=== PATIENT | female | born 1940 | race Caucasian/White ===

== ENCOUNTER → 2017-08-04 | Outpatient (CLI) | payer OTHER, MEDICARE ==
--- NOTE | 2017-08-04 08:35 | DIAGNOSTIC IMAGING REPORT ---
LYMPHOSCINTIGRAPHY CLINICAL HISTORY: Right breast cancer. PROCEDURE: Using standard sterile technique, 4 intradermal and one deep injection of 0.575 mCi of Lymphoseek was placed in the right breast medial to the nipple at the site specified by the surgeon. The patient tolerated the procedure well. There were no immediate complications. The patient was subsequently transported to [facility] for surgery. No imaging was obtained at the referring physician's request. IMPRESSION: Injection of 0.575 mCi of Lymphoseek in the right breast. Electronically signed by: Jimy Barahona M.D. 08/04/2017 8:34 AM Dictated Date/Time: 08/04/2017 8:33 AM
== END | disposition home or self-care (01) ==
LOC: C.NUCL 07:33
PROVIDERS: ATTEND Surgery
DX: C50.311 Malignant neoplasm of lower-inner quadrant of right female breast (principal)

== ENCOUNTER → 2017-09-14 | Outpatient (CLI) | payer OTHER, MEDICARE ==
[~2017-09-14] MED LIST: ASPI81TA28 PO; CHOL2000 PO; LISI-788 PO; ZCR40
--- NOTE | 2017-09-14 19:01 | ECHOCARDIOGRAM REPORT ---
*NOTICE TO RECEIVING LIBERTARIAN AGENCY This information is strictly Confidential and protected under [place] law. [place] law prohibits you from making any further disclosure of this information unless further disclosure is expressly permitted by the written consent of the person to whom it pertains or is authorized by law. A general authorization for the release of medical or other information is not sufficient for this purpose. Hospital accepts no responsibility if the information is made available to any other person, INCLUDING THE PATIENT. Interpretation Summary * Name: ROSE SAINZ Study Date: 09/14/2017 01:36 PM BP: 114/58 mmHg * Patient Location: [facility] HR: 82 * : 1940 (M/d/yyyy) Gender: Female Height: 65 in * Age: 77 yrs Ethnicity: CA Weight: 129 lb * Ordering Physician: Thee Quezada * Referring Physician: Thee Quezada * Performed By: Radha Rangel RDCS * * Reason For Study: BREAST CA * BSA: 1.6 m2 * Normal biventricular systolic function. * Class 1 left ventricular diastolic dysfunction. * Normal chamber dimensions. * Trace pulmonic regurgitation. * Mild tricuspid regurgitation. * Mildly elevated estimated right ventricular systolic pressure. * Normal estimated central venous pressure. * -- Conclusions -- * Aortic valve sclerosis mild, without significant aortic valvular stenosis. Procedure Details * A complete two-dimensional transthoracic echocardiogram was performed (2D, M-mode, Doppler and color flow Doppler). Left Ventricle * The left ventricle is normal in size. * Focal thickening of the basal septum with no evidence of left ventricular outflow obstruction. * Ejection Fraction = 65-70%. * Left ventricular systolic function is normal. * A full diastolic examination was done with clinical findings of Class I diastolic dysfunction. * The left ventricular wall motion is normal. Right Ventricle * The right ventricle is normal in size and function. * The right ventricular systolic function is normal as assessed by tricuspid annular plane systolic excursion (TAPSE) (normal >1.5 cm). Atria * The left atrial size is normal. * Right atrial size is normal. * No ASD detected; PFO is not assessed. Mitral Valve * The mitral valve is normal. * There is no mitral valve stenosis. * There is no mitral regurgitation noted. Tricuspid Valve * The tricuspid valve is normal. * There is no tricuspid stenosis. * There is mild tricuspid regurgitation. * Right ventricular systolic pressure is elevated at 30-40mmHg. Aortic Valve * The aortic valve is trileaflet. * The aortic valve opens well. * Aortic valve sclerosis mild, without significant aortic valvular stenosis. * Aortic stenosis is absent. * No aortic regurgitation is present. Pulmonic Valve * The pulmonic valve is not well visualized. * The pulmonary valve is inadequately visualized, but the Doppler data is adequate for interpretation. * There is no pulmonic valvular stenosis. * Trace pulmonic valvular regurgitation. Great Vessels * The aortic root is normal size. * The aortic root and proximal ascending aorta are normal sized. Pericardium/Pleural * There is no pericardial effusion. Great Vessels * Normal inferior vena cava diameter and respiratory variation suggests normal central venous pressure. MMode 2D Measurements and Calculations IVSd 0.96 cm IVSs 1.8 cm LVIDd 4.0 cm LVIDs 2.4 cm LVPWd 0.98 cm LVPWs 1.4 cm IVS/LVPW 0.99 FS 40.1 % EDV(Teich) 71.3 ml ESV(Teich) 20.4 ml EF(Teich) 71.3 % EDV(cubed) 65.5 ml ESV(cubed) 14.1 ml EF(cubed) 78.5 % % IVS thick 91.4 % % LVPW thick 47.3 % LV mass(C)d 123.3 grams LV mass(C)dI 75.1 grams/m\S\2 LV mass(C)s 142.8 grams LV mass(C)sI 87.0 grams/m\S\2 SV(Teich) 50.8 ml SI(Teich) 31.0 ml/m\S\2 SV(cubed) 51.4 ml SI(cubed) 31.3 ml/m\S\2 Ao root diam 3.4 cm Ao root area 8.9 cm\S\2 ACS 1.5 cm LA dimension 3.4 cm asc Aorta Diam 3.2 cm LA/Ao 10 LVOT diam 1.7 cm LVOT area 2.2 cm\S\2 LVAd ap4 25.8 cm\S\2 LVLd ap4 7.7 cm EDV(MOD-sp4) 71.3 ml EDV(sp4-el) 73.7 ml LVAs ap4 12.8 cm\S\2 LVLs ap4 6.3 cm ESV(MOD-sp4) 21.8 ml ESV(sp4-el) 22.0 ml EF(MOD-sp4) 69.4 % EF(sp4-el) 70.1 % LVAd ap2 22.4 cm\S\2 LVLd ap2 6.8 cm EDV(MOD-sp2) 61.6 ml EDV(sp2-el) 63.1 ml LVAs ap2 11.5 cm\S\2 LVLs ap2 5.5 cm ESV(MOD-sp2) 19.6 ml ESV(sp2-el) 20.3 ml EF(MOD-sp2) 68.1 % EF(sp2-el) 67.8 % LVLd %diff -13.70 % EDV(MOD-bp) 70.5 ml LVLs %diff -15.17 % ESV(MOD-bp) 22.3 ml EF(MOD-bp) 68.4 % SV(MOD-sp4) 49.5 ml SI(MOD-sp4) 30.1 ml/m\S\2 SV(MOD-sp2) 41.9 ml SI(MOD-sp2) 25.5 ml/m\S\2 SV(MOD-bp) 48.2 ml SI(MOD-bp) 29.4 ml/m\S\2 SV(sp4-el) 51.7 ml SI(sp4-el) 31.5 ml/m\S\2 SV(sp2-el) 42.8 ml SI(sp2-el) 26.1 ml/m\S\2 Doppler Measurements and Calculations MV E max luis 50.1 cm/sec MV A max luis 72.3 cm/sec MV E/A 0.69 MV dec time 0.32 sec Ao V2 max 140.6 cm/sec Ao max PG 7.9 mmHg Ao max PG (full) 0.64 mmHg BLANCA(V,A) 2.2 cm\S\2 BLANCA(V,D) 2.2 cm\S\2 LV V1 max PG 7.3 mmHg LV V1 max 134.8 cm/sec PA V2 max 93.8 cm/sec PA max PG 3.5 mmHg TR max luis 277.0 cm/sec
== END | disposition home or self-care (01) ==
LOC: C.CPL 13:30
PROVIDERS: ATTEND Internal Medicine Hematology & Oncology
DX: C50.311 Malignant neoplasm of lower-inner quadrant of right female breast (principal)

== ENCOUNTER → 2018-01-20 | Outpatient (CLI) | payer OTHER, MEDICARE ==
[~2018-01-20] MED LIST changes: +ERGO500037 PO; -ZCR40; +ZCR40 PO
--- NOTE | 2018-01-20 16:05 | ECHOCARDIOGRAM REPORT ---
*NOTICE TO RECEIVING DEMOCRAT AGENCY This information is strictly Confidential and protected under [place] law. [place] law prohibits you from making any further disclosure of this information unless further disclosure is expressly permitted by the written consent of the person to whom it pertains or is authorized by law. A general authorization for the release of medical or other information is not sufficient for this purpose. Hospital accepts no responsibility if the information is made available to any other person, INCLUDING THE PATIENT. Interpretation Summary * Conclusions -- * Left ventricular systolic function is normal. * There is mild mitral regurgitation. * Right ventricular systolic pressure is normal. Procedure Details * A complete two-dimensional transthoracic echocardiogram was performed (2D, M-mode, Doppler and color flow Doppler). Left Ventricle * The left ventricle is normal in size. * There is normal left ventricular wall thickness. * Ejection Fraction = 55-60%. * Left ventricular systolic function is normal. * The left ventricular wall motion is normal. Right Ventricle * The right ventricle is normal in size and function. * The right ventricular systolic function is qualitatively normal. Atria * The left atrial size is normal. * Right atrial size is normal. Mitral Valve * The mitral valve leaflets appear normal. There is no evidence of stenosis, fluttering, or prolapse. * There is mild mitral regurgitation. Tricuspid Valve * The tricuspid valve is not well visualized, but is grossly normal. * There is trace tricuspid regurgitation. * Right ventricular systolic pressure is normal. Aortic Valve * The aortic valve is normal in structure and function. * The aortic valve is trileaflet. * No hemodynamically significant valvular aortic stenosis. * There is no significant aortic regurgitation. Great Vessels * The aortic root is normal size. Pericardium/Pleural * There is no pericardial effusion. Great Vessels * Normal inferior vena cava diameter and respiratory variation suggests normal central venous pressure. MMode 2D Measurements and Calculations IVSd 0.92 cm IVSs 1.1 cm LVIDd 3.9 cm LVIDs 2.6 cm LVPWd 0.87 cm LVPWs 1.1 cm IVS/LVPW 1.1 FS 33.7 % EDV(Teich) 67.3 ml ESV(Teich) 24.8 ml EF(Teich) 63.1 % EDV(cubed) 60.9 ml ESV(cubed) 17.8 ml EF(cubed) 70.9 % % IVS thick 18.5 % % LVPW thick 24.0 % LV mass(C)d 105.3 grams LV mass(C)dI 66.0 grams/m\S\2 LV mass(C)s 75.9 grams LV mass(C)sI 47.6 grams/m\S\2 SV(Teich) 42.5 ml SI(Teich) 26.6 ml/m\S\2 SV(cubed) 43.2 ml SI(cubed) 27.0 ml/m\S\2 Ao root diam 3.5 cm Ao root area 9.4 cm\S\2 ACS 1.4 cm LA dimension 2.8 cm asc Aorta Diam 3.1 cm LA/Ao 0.80 EDV(MOD-sp4) 75.0 ml ESV(MOD-sp4) 36.0 ml EF(MOD-sp4) 52.0 % EDV(MOD-sp2) 76.0 ml ESV(MOD-sp2) 30.0 ml EF(MOD-sp2) 60.5 % SV(MOD-sp4) 39.0 ml SI(MOD-sp4) 24.4 ml/m\S\2 SV(MOD-sp2) 46.0 ml SI(MOD-sp2) 28.8 ml/m\S\2 Doppler Measurements and Calculations MV E max luis 76.2 cm/sec MV A max luis 71.0 cm/sec MV E/A 1.1 MV P1/2t max luis 86.8 cm/sec MV P1/2t 70.0 msec MVA(P1/2t) 3.1 cm\S\2 MV dec slope 363.4 cm/sec\S\2 MV dec time 0.23 sec Ao V2 max 129.1 cm/sec Ao max PG 6.7 mmHg Ao max PG (full) 1.0 mmHg LV V1 max PG 5.6 mmHg LV V1 max 118.7 cm/sec PA V2 max 83.3 cm/sec PA max PG 2.8 mmHg TR max luis 249.5 cm/sec
== END | disposition home or self-care (01) ==
LOC: C.CPL 12:28
PROVIDERS: ATTEND Internal Medicine Hematology & Oncology
DX: C50.311 Malignant neoplasm of lower-inner quadrant of right female breast (principal)

== ENCOUNTER → 2018-02-03 | Outpatient (CLI) | payer OTHER, MEDICARE ==
[~2018-02-03] MED LIST changes: -CHOL2000 PO
--- NOTE | 2018-02-06 07:46 | MAMMOGRAPHY REPORT ---
UNILATERAL RIGHT DIGITAL DIAGNOSTIC MAMMOGRAM TOMOSYNTHESIS WITH CAD: 02/03/2018 CLINICAL HISTORY: History of right breast cancer status post lumpectomy July 2017 as well as chemo therapy. She will be undergoing radiation therapy in the near future. She denies any current compla ints. TECHNIQUE: Breast tomosynthesis in addition to standard 2D mammography was performed. Current study was also evaluated with a Computer Aided Detection (CAD) system. Right CC and MLO 2D and tomosynthes is images and spot magnification right CC and ML views were obtained. COMPARISON: Comparison is made to exams dated: 06/29/2017 mammogram and 08/04/2017 mammogram. Note t hat the patient has had older prior screening mammograms at [facility], however, there is an iss ue with the PACS system in [place] and the older prior mammograms cannot be retrieved and therefore ar e not available for comparison. BREAST COMPOSITION: The tissue of the right breast is heterogeneously dense, which may obscure small masses. FINDINGS: There are new postsurgical changes in the right lower inner quadrant from prior lumpectomy, including new density, architectural distortion, and surgical clips at the lumpectomy bed. Coarse b enign-appearing calcifications are seen throughout the right breast, with a few faint calcifications seen slightly medial to the lumpectomy bed which have the appearance of vascular calcifications when reviewing the tomosynthesis images. The remainder of the right breast demonstrates no suspicious mass es, calcifications, or areas of architectural distortion. IMPRESSION: ACR-BI-RADS CATEGORY 3: PROBABLY BENIGN New post surgical changes in the right breast from prior lumpectomy, without mammographic evidence of malignancy in the right breast. Recommend bilateral diagnostic tomosynthesis mammograms in 6 months , to reevaluate the right breast posttreatment changes and for routine mammography of the left breast . The patient has been verbally notified of the results. Approximately 10% of breast cancers are not detected with mammography. A negative mammographic report should not delay biopsy if a clinically suggestive mass is present. Maude Mustafa M.D. /:02/03/2018 14:50:13 Trauma Program Manager: Tapan ORTIZ)([place]), [facility] letter sent: Personal History 3 BI-RADS Code: ACR-BI-RADS Category 3: Probably Benign
== END | disposition home or self-care (01) ==
LOC: C.MAMM 09:51
PROVIDERS: ATTEND Nurse Practitioner Women's Health
DX: C50.911 Malignant neoplasm of unspecified site of right female breast (principal)

== ENCOUNTER → 2018-03-06 | Outpatient (CLI) | payer OTHER, MEDICARE ==
[~2018-03-06] MED LIST changes: +CETI10TA84 PO
--- NOTE | 2018-03-06 15:50 | ECHOCARDIOGRAM REPORT ---
*NOTICE TO RECEIVING DEMOCRAT AGENCY This information is strictly Confidential and protected under [place] law. [place] law prohibits you from making any further disclosure of this information unless further disclosure is expressly permitted by the written consent of the person to whom it pertains or is authorized by law. A general authorization for the release of medical or other information is not sufficient for this purpose. Hospital accepts no responsibility if the information is made available to any other person, INCLUDING THE PATIENT. Interpretation Summary * Name: ROSE SAINZ Study Date: 03/06/2018 01:39 PM BP: 128/70 mmHg * Patient Location: [facility] HR: 76 * : 1940 (M/d/yyyy) Gender: Female Height: 65 in * Age: 78 yrs Ethnicity: CA Weight: 128 lb * Ordering Physician: Thee Quezada * Referring Physician: Thee Quezada * Performed By: Mile Smith RDCS * * Reason For Study: BREAST CA * BSA: 1.6 m2 * -- Conclusions -- * 1. Normal LV size. Mild asymmetric basal septal hypertrophy. * 2. Normal LV systolic function. LVEF 55-60%. * 3. Normal RV size and function. * 4. Mild mitral regurgitation * 5. Normal estimated PA and RA pressures. * 6. Compared with prior study on 01/20/2018: No significant change Procedure Details * Left Ventricle The left ventricle is grossly normal size. There is mild asymmetric left ventricular hypertrophy. Ejection Fraction = 55-60%. Septal motion is consistent with conduction abnormality. * Right Ventricle The right ventricle is grossly normal size. The right ventricular systolic function is normal as assessed by tricuspid annular plane systolic excursion (TAPSE) (normal >1.5 cm). * Atria The left atrial size is normal. Right atrial size is normal. No ASD detected; PFO is not assessed. * Mitral Valve There is no mitral valve stenosis. There is mild mitral regurgitation. * Tricuspid Valve There is mild tricuspid regurgitation. * Aortic Valve The aortic valve opens well. The aortic valve is trileaflet. No hemodynamically significant valvular aortic stenosis. There is no significant aortic regurgitation. * Pulmonic Valve The pulmonary valve is inadequately visualized, but the Doppler data is adequate for interpretation. There is no pulmonic valvular stenosis. There is no significant pulmonary regurgitation. * Great Vessels The aortic root and proximal ascending aorta are normal sized. * Pericardium/Pleural There is no pericardial effusion. * Great Vessels Normal inferior vena cava size and collapsability with sniff indicates a normal right atrial pressure of 3 mmHg * * MMode 2D Measurements and Calculations * IVSd 1.4 cm * IVSs 1.6 cm * * LVIDd 3.2 cm * LVIDs 2.3 cm * LVPWd 1.1 cm * LVPWs 1.5 cm * * IVS/LVPW 1.3 * FS 28.5 % * EDV(Teich) 40.4 ml * ESV(Teich) 17.6 ml * EF(Teich) 56.4 % * * EDV(cubed) 32.2 ml * ESV(cubed) 11.7 ml * EF(cubed) 63.5 % * % IVS thick 14.8 % * % LVPW thick 41.3 % * * LV mass(C)d 123.3 grams * LV mass(C)dI 75.3 grams/m\S\2 * LV mass(C)s 120.3 grams * LV mass(C)sI 73.5 grams/m\S\2 * * SV(Teich) 22.8 ml * SI(Teich) 13.9 ml/m\S\2 * SV(cubed) 20.4 ml * SI(cubed) 12.5 ml/m\S\2 * * Ao root diam 3.5 cm * Ao root area 9.6 cm\S\2 * LA dimension 3.0 cm * * LA/Ao 0.87 * * LVAd ap4 22.5 cm\S\2 * LVLd ap4 7.2 cm * EDV(MOD-sp4) 61.1 ml * EDV(sp4-el) 59.3 ml * LVAs ap4 13.9 cm\S\2 * LVLs ap4 6.7 cm * ESV(MOD-sp4) 26.2 ml * ESV(sp4-el) 24.3 ml * EF(MOD-sp4) 57.2 % * EF(sp4-el) 59.0 % * * LVAd ap2 26.3 cm\S\2 * LVLd ap2 7.9 cm * EDV(MOD-sp2) 77.4 ml * EDV(sp2-el) 74.5 ml * LVAs ap2 15.3 cm\S\2 * LVLs ap2 6.8 cm * ESV(MOD-sp2) 31.3 ml * ESV(sp2-el) 29.3 ml * EF(MOD-sp2) 59.6 % * EF(sp2-el) 60.7 % * * LVLd %diff 8.4 % * EDV(MOD-bp) 70.0 ml * LVLs %diff 1.7 % * ESV(MOD-bp) 28.4 ml * EF(MOD-bp) 59.5 % * * SV(MOD-sp4) 35.0 ml * SI(MOD-sp4) 21.4 ml/m\S\2 * * SV(MOD-sp2) 46.1 ml * SI(MOD-sp2) 28.2 ml/m\S\2 * * SV(MOD-bp) 41.7 ml * SI(MOD-bp) 25.5 ml/m\S\2 * * SV(sp4-el) 35.0 ml * SI(sp4-el) 21.4 ml/m\S\2 * * SV(sp2-el) 45.2 ml * SI(sp2-el) 27.6 ml/m\S\2 * * * Doppler Measurements and Calculations * MV E max luis 48.7 cm/sec * * MV dec time 0.31 sec * * Ao V2 max 119.4 cm/sec * Ao max PG 5.7 mmHg * Ao max PG (full) 3.0 mmHg * * LV V1 max PG 2.7 mmHg * * LV V1 max 82.7 cm/sec * * TR max luis 241.1 cm/sec * * * *
== END | disposition home or self-care (01) ==
LOC: C.CPL 13:33
PROVIDERS: ATTEND Nurse Practitioner Family
DX: C50.311 Malignant neoplasm of lower-inner quadrant of right female breast (principal)

== ENCOUNTER → 2018-05-31 | Outpatient (CLI) | payer OTHER, MEDICARE ==
--- NOTE | 2018-06-01 19:32 | ECHOCARDIOGRAM REPORT ---
*NOTICE TO RECEIVING REPUBLICAN AGENCY This information is strictly Confidential and protected under [place] law. [place] law prohibits you from making any further disclosure of this information unless further disclosure is expressly permitted by the written consent of the person to whom it pertains or is authorized by law. A general authorization for the release of medical or other information is not sufficient for this purpose. Hospital accepts no responsibility if the information is made available to any other person, INCLUDING THE PATIENT. Interpretation Summary * Name: ROSE SAINZ Study Date: 05/31/2018 12:34 PM BP: 143/66 mmHg * Patient Location: [facility] HR: 69 * : 1940 (M/d/yyyy) Gender: Female Height: 65 in * Age: 78 yrs Ethnicity: CA Weight: 128 lb * Ordering Physician: Thee Quezada * Referring Physician: Thee Quezada * Performed By: Mile Smith RDCS * * Reason For Study: BREAST CA * BSA: 1.6 m2 * -- Conclusions -- * 1. Normal left ventricular size and systolic function. EF 55-60%. No regional wall motion abnormalities. No left ventricular hypertrophy. Type 1 diastolic dysfunction. * 2. There is mild mitral regurgitation. * 3. Normal estimated right ventricular systolic pressure. * 4. No significant change from prior study on 03/06/2018. Procedure Details * A complete two-dimensional transthoracic echocardiogram was performed (2D, M-mode, Doppler and color flow Doppler). Left Ventricle * Normal left ventricular size and systolic function. EF 55-60%. No regional wall motion abnormalities. No left ventricular hypertrophy. Type 1 diastolic dysfunction. Right Ventricle * Borderline right ventricular enlargement. * The right ventricular systolic function is normal as assessed by tricuspid annular plane systolic excursion (TAPSE) (normal >1.5 cm). Atria * The left atrial size is normal. * Right atrial size is normal. * There is no evidence of atrial septal defect, but resolution does not allow assessment for a patent foramen ovale. Mitral Valve * Mild systolic anterior motion of the mitral leaflet without LVOT obstruction. * There is no mitral valve stenosis. * There is mild mitral regurgitation. Tricuspid Valve * The tricuspid valve is not well visualized, but is grossly normal. * There is no tricuspid stenosis. * There is mild tricuspid regurgitation. Aortic Valve * The aortic valve is trileaflet. * No hemodynamically significant valvular aortic stenosis. * No aortic regurgitation is present. Pulmonic Valve * The pulmonary valve is inadequately visualized, but the Doppler data is adequate for interpretation. * There is no pulmonic valvular stenosis. * There is no significant pulmonary regurgitation. Great Vessels * The aortic root is normal size. * Aortic arch of normal dimension. Pericardium/Pleural * There is no pericardial effusion. Great Vessels * Normal inferior vena cava size and collapsability with sniff indicates a normal right atrial pressure of 3 mmHg MMode 2D Measurements and Calculations IVSd 1.0 cm IVSs 1.8 cm LVIDd 3.6 cm LVIDs 2.5 cm LVPWd 0.88 cm LVPWs 1.3 cm IVS/LVPW 1.2 FS 30.0 % EDV(Teich) 55.4 ml ESV(Teich) 23.2 ml EF(Teich) 58.2 % EDV(cubed) 47.6 ml ESV(cubed) 16.3 ml EF(cubed) 65.7 % % IVS thick 67.1 % % LVPW thick 51.3 % LV mass(C)d 103.7 grams LV mass(C)dI 63.4 grams/m\S\2 LV mass(C)s 135.1 grams LV mass(C)sI 82.5 grams/m\S\2 SV(Teich) 32.2 ml SI(Teich) 19.7 ml/m\S\2 SV(cubed) 31.3 ml SI(cubed) 19.1 ml/m\S\2 Ao root diam 3.4 cm Ao root area 8.9 cm\S\2 LA dimension 3.0 cm asc Aorta Diam 2.7 cm LA/Ao 0.90 LVAd ap4 23.3 cm\S\2 LVLd ap4 7.2 cm EDV(MOD-sp4) 65.4 ml EDV(sp4-el) 63.9 ml LVAs ap4 13.1 cm\S\2 LVLs ap4 5.9 cm ESV(MOD-sp4) 25.8 ml ESV(sp4-el) 24.7 ml EF(MOD-sp4) 60.6 % EF(sp4-el) 61.4 % LVAd ap2 21.0 cm\S\2 LVLd ap2 6.9 cm EDV(MOD-sp2) 55.8 ml EDV(sp2-el) 54.2 ml LVAs ap2 12.3 cm\S\2 LVLs ap2 5.9 cm ESV(MOD-sp2) 23.0 ml ESV(sp2-el) 21.7 ml EF(MOD-sp2) 58.8 % EF(sp2-el) 60.0 % LVLd %diff -4.01 % EDV(MOD-bp) 60.9 ml LVLs %diff 0.70 % ESV(MOD-bp) 24.1 ml EF(MOD-bp) 60.3 % SV(MOD-sp4) 39.7 ml SI(MOD-sp4) 24.2 ml/m\S\2 SV(MOD-sp2) 32.8 ml SI(MOD-sp2) 20.0 ml/m\S\2 SV(MOD-bp) 36.7 ml SI(MOD-bp) 22.4 ml/m\S\2 SV(sp4-el) 39.2 ml SI(sp4-el) 24.0 ml/m\S\2 SV(sp2-el) 32.5 ml SI(sp2-el) 19.9 ml/m\S\2 Doppler Measurements and Calculations MV E max luis 49.1 cm/sec MV A max luis 58.1 cm/sec MV E/A 0.84 MV dec time 0.29 sec Ao V2 max 149.8 cm/sec Ao max PG 9.0 mmHg Ao max PG (full) 1.8 mmHg LV V1 max PG 7.2 mmHg LV V1 max 133.7 cm/sec TR max luis 246.4 cm/sec RVSP(TR) 27.3 mmHg RAP systole 3.0 mmHg
== END | disposition home or self-care (01) ==
LOC: C.CPL 12:31
PROVIDERS: ATTEND Internal Medicine Hematology & Oncology
DX: C50.311 Malignant neoplasm of lower-inner quadrant of right female breast (principal)